=== PATIENT | female | born 1975 | race Caucasian/White ===

== ENCOUNTER 2016-09-03 19:59 | Emergency (ER) | payer OTHER ==
[2016-09-03 22:57] VITALS: BP 111/67
== END 2016-09-03 22:58 | disposition home or self-care (01) ==
LOC: ED 19:59
PROC: 3E033NZ Introduction of Analgesics, Hypnotics, Sedatives into Peripheral Vein, Percutaneous Approach (ICD-10-PCS; principal; 2016-09-03)
PROC: 3E0333Z Introduction of Anti-inflammatory into Peripheral Vein, Percutaneous Approach (ICD-10-PCS; 2016-09-03)
PROC: 3E033GC Introduction of Other Therapeutic Substance into Peripheral Vein, Percutaneous Approach (ICD-10-PCS; 2016-09-03)
DX: G43.909 Migraine, unspecified, not intractable, without status migrainosus (principal)
CPT/HCPCS: J0780; J1200; J1885; J7030

== ENCOUNTER 2017-02-22 08:29 | Emergency (ER) | payer OTHER ==
[~2017-02-22] VITALS: Ht 152.4 cm; Wt 103.0 kg
[2017-02-22 08:32] VITALS: Ht 152.4 cm; Wt 103.0 kg
[2017-02-22 10:22] VITALS: BP 123/68
== END 2017-02-22 10:23 | disposition home or self-care (01) ==
LOC: ED 08:29
DX: J20.8 Acute bronchitis due to other specified organisms (principal)
CPT/HCPCS: J3010; J7613; Q0092

== ENCOUNTER 2017-04-12 14:22 | Emergency (ER) | payer OTHER ==
[~2017-04-12] VITALS: Ht 157.5 cm; Wt 104.3 kg
[2017-04-12 14:39] VITALS: Ht 157.5 cm; Wt 104.3 kg
[2017-04-12 17:13] VITALS: BP 138/86
== END 2017-04-12 17:13 | disposition home or self-care (01) ==
LOC: ED 14:22
DX: G43.909 Migraine, unspecified, not intractable, without status migrainosus (principal); R03.0 Elevated blood-pressure reading, without diagnosis of hypertension
CPT/HCPCS: J1885; J2765; J3010; Q0162; Q0163